=== PATIENT | female | born 1955 | race Two or more races ===

== ENCOUNTER 2022-09-26 17:43 | Emergency (ER) | payer OTHER ==
[~2022-09-26] VITALS: Ht 157.5 cm; Wt 72.6 kg
[2022-09-26] MEDS ORDERED: DILTIAZEM 24HR180 MG PO (18:36)
== END 2022-09-26 21:09 | disposition home or self-care (01) ==
LOC: ER 17:43
DX: I16.9 Hypertensive crisis, unspecified (principal); I10 Essential (primary) hypertension; Z88.0 Allergy status to penicillin; Z88.6 Allergy status to analgesic agent

== ENCOUNTER 2023-09-20 20:18 | Emergency (ER) | payer OTHER ==
[~2023-09-20] VITALS: Ht 157.5 cm; Wt 80.3 kg
[~2023-09-20 20:18] MED LIST: DILTIAZEM 24HR180 MG PO
[2023-09-20] MEDS ORDERED: COZAAR50 MG PO (21:11)
[2023-09-20] MEDS ORDERED: BREO ELLIPTA 21 EACH PO (21:12)
== END 2023-09-21 00:57 | disposition home or self-care (01) ==
LOC: ER 20:19
DX: I10 Essential (primary) hypertension (principal); Z88.6 Allergy status to analgesic agent; Z88.0 Allergy status to penicillin